=== PATIENT | male | born 1975 ===

== ENCOUNTER 2023-03-27 12:13 | Emergency (ER) | payer OTHER, SELFPAY ==
[2023-03-27 12:21] VITALS: BP 119/74; PULSE 62; RESP 14; TEMP 36.6; O2SAT 100; BMI 23.6
[2023-03-27] MEDS: GABAPENTIN 600 MG TABLET PO (13:36)
--- NOTE | 2023-03-27 14:35 | ED_ITS ---
HPI - Skin/Abscess/Foreign Bdy General Chief complaint: Skin/Abscess/Foreign Body Stated complaint: Thinks shingles Time Seen by Provider: 03/27/23 13:20 Source: patient Mode of arrival: Ambulatory Limitations: no limitations History of Present Illness HPI narrative: 47-year-old male presents to the ED with 2 days of left-sided trunk rash and pain. Patient describes the pain and discomfort as a soreness. Patient reports that he 1st felt the discomfort and rash on his left flank, and it thereafter spread around to his left abdomen. Patient denies fever, chills, chest pain, shortness of breath, nausea, vomiting. No exposure to poison swathi or other allergenic substances. Patient did have chickenpox as a child. Related Data Previous Rx's Medication Instructions Recorded gabapentin 300 mg capsule 300 mg PO TID 7 days #21 caps 03/27/23 valacyclovir 1 gram tablet 1,000 mg PO Q8H 7 days #21 tabs 03/27/23 (Valtrex) Allergies Allergy/AdvReac Type Severity Reaction Status Date / Time No Known Drug Allergies Allergy Verified 03/27/23 12:29 Review of Systems Review of Systems ROS Unobtainable: All systems reviewed & are unremarkable except as noted in HPI and below Constitutional Constitutional: Denies chills, Denies fatigue, Denies fever(s), Denies frequent falls, Denies lethargy and Denies weakness Eyes Eyes: Denies change in vision, Denies eye discharge, Denies irritation and Denies loss of vision ENT Ears, Nose, Mouth, and Throat: Denies change in voice, Denies dizziness, Denies neck pain, Denies sore throat and Denies throat swelling Cardiovascular Cardiovascular: Denies chest pain, Denies irregular heart rhythm, Denies lightheadedness, Denies palpitations, Denies dyspnea, Denies dyspnea on exertion and Denies orthopnea Respiratory Respiratory: Denies cough, Denies dyspnea, Denies dyspnea on exertion and Denies wheezing Gastrointestinal Gastrointestinal: Denies abdominal pain, Denies change in bowel habits, Denies diarrhea, Denies nausea and Denies vomiting Genitourinary Genitourinary: Denies hematuria, Denies flank pain, Denies urinary incontinence and Denies urinary urgency Musculoskeletal Musculoskeletal: Denies back pain, Denies muscle weakness, Denies neck pain, Denies numbness and Denies tingling Integumentary/Breasts Skin/Breast: Denies pruritus, Denies erythema, Reports rash, Reports skin pain and Denies wounds Neurologic Neurologic: Denies behavioral changes, Denies confusion, Denies dizziness, Denies frequent falls, Denies loss of vision, Denies numbness, Denies tingling and Denies weakness Psychiatric Psychiatric: Denies anxiety, Denies behavioral changes, Denies confusion, Denies depression, Denies homicidal ideation and Denies suicidal ideation Endocrine Endocrine: Denies fatigue, Denies flushing and Denies palpitations Hematologic/Lymphatic Hematologic/Lymphatic: Denies easy bruising Allergic/Immunologic Allergic/Immunologic: Denies urticaria, Denies throat swelling and Denies w heezing Patient History Social History Smoking Status: Never smoker Smoking Status: Never smoker alcohol intake frequency: a few times a week Substance Use Type: does not use Exam Narrative Exam Narrative: Const General:?cooperative, healthy appearing and comfortable [facility] Head:?normal to inspection Ears:?hearing grossly normal bilaterally Nose:?external nose normal Face and sinus:?normal facial exam and sinuses nontender Mouth:?oral mucosae normal Throat:?posterior oropharynx normal Eyes General:?appearance normal, both eyes and all related structures Neck Neck:?normal visual inspection and no lymphadenopathy noted Resp Effort & Inspection:?normal respiratory effort Auscultation:?clear to auscultation bilaterally Cardio Rate:?regular rate Rhythm:?regular rhythm Integumentary Vesicular rash that extends from the left flank all around to the left abdomen. Does not cross midline. No signs of superimposed bacterial infection. Neuro General:?patient alert, patient awake and patient oriented x3 Initial Vital Signs Initial Vital Signs: Vital Signs Temperature 98 F 03/27/23 12:21 Pulse Rate 62 03/27/23 12:21 Respiratory Rate 14 03/27/23 12:21 Blood Pressure 119/74 03/27/23 12:21 Pulse Oximetry 100 03/27/23 12:21 Oxygen Delivery Method Room Air 03/27/23 12:21 Course Orders Ordered: Discontinued Medications Gabapentin (Gabapentin 600 Mg Tablet) 600 mg PO NOW ONE Stop: 03/27/23 13:33 Last Admin: 03/27/23 13:36 Dose: 600 mg Documented By: INO Vital Signs Vital signs: Vital Signs - 8 hr 03/27/23 12:21 Temperature 98 F Pulse Rate 62 Respiratory Rate 14 Blood Pressure 119/74 Pulse Oximetry 100 Oxygen Delivery Method Room Air MDM - Skin/Abscess/Foreign Bdy MDM Narrative Medical decision making narrative: 47-year-old male presents to the ED with 2 days of left-sided trunk rash and pain. Physical exam most consistent with shingles. There is a vesicular rash that extends from the left flank all around to the left abdomen. Rash does not cross the midline. No signs of superimposed bacterial infection. Prescribed valacyclovir, gabapentin. First dose of gabapentin was given in the ED for pain control. ED return precautions were discussed with patient. Patient verbalized understanding. Medical records reviewed: Yes Discharge Plan Departure Patient Disposition: Home Clinical Impression: Herpes zoster Instructions: DI for Shingles Activity Restrictions/Additional Instructions: You were evaluated for a left-sided rash. Your symptoms appear most consistent with shingles. You are being prescribed valacyclovir which is an antiviral. You are also being prescribed gabapentin for pain. Please take those as prescribed. Please follow-up with your PCP in 3-5 days. Return to the ED you worsening symptoms. Prescriptions: New valacyclovir [Valtrex] 1 gram tablet 1,000 mg PO Q8H 7 Days Qty: 21 0RF gabapentin 300 mg capsule 300 mg PO TID 7 Days Qty: 21 0RF Stand Alone Forms: Patient Portal/API
== END 2023-03-27 13:39 | disposition home or self-care (01) ==
PROVIDERS: Emergency Provider Student in an Organized Health Care Education/Training Program
DX: B02.9 Zoster without complications (principal)
CPT/HCPCS: 99283